=== PATIENT | male | born 1940 | race Two or more races ===

== ENCOUNTER 2018-03-13 08:51 | Outpatient (CLI) | payer OTHER ==
[~2018-03-13 08:51] MED LIST: DICLOFENAC POTA50 MG PO; SIMVASTATIN40 MG; TIZANIDINE HCL2 MG PO
== END 2018-03-13 08:56 | disposition home or self-care (01) ==
LOC: LAB 08:51
DX: F01.51 Vascular dementia, unspecified severity, with behavioral disturbance (principal); E78.4 Other hyperlipidemia; Z85.46 Personal history of malignant neoplasm of prostate

== ENCOUNTER 2018-03-18 07:49 | Outpatient (CLI) | payer OTHER | END 2018-03-18 07:59 | disposition home or self-care (01) | LOC: LAB 07:49 | DX: N39.0 Urinary tract infection, site not specified (principal); R73.01 Impaired fasting glucose ==

== ENCOUNTER 2018-03-19 10:30 | Outpatient (CLI) | payer OTHER | END 2018-03-19 10:40 | disposition home or self-care (01) | LOC: MRI 10:30 | DX: F01.51 Vascular dementia, unspecified severity, with behavioral disturbance (principal); Z85.46 Personal history of malignant neoplasm of prostate | CPT/HCPCS: 70552; A9579 ==

== ENCOUNTER → 2019-09-25 | Outpatient (CLI) | payer OTHER | END | disposition home or self-care (01) | LOC: MRI 13:12 | DX: M54.5 Low back pain (principal); M51.36 Other intervertebral disc degeneration, lumbar region | CPT/HCPCS: 72148 ==